=== PATIENT | female | born 1970 | race Caucasian/White ===

== ENCOUNTER → 2016-09-20 | Outpatient (REF) | payer BC ==
[2016-09-20 12:01] LABS: BASO % 0.6 % (0.0-1.0); EOS # 0.1 K/mm3 (0.0-0.50); EOS % 2.3 % (0.0-3.0); LARGE UNSTAINED CELL # 0.1 K/mm3 (0.0-0.4); LARGE UNSTAINED CELL % 1.7 % (0.0-4.0); LYMPH # 1.1 K/mm3 (1.5-4.5); MEAN CORPUSCULAR HEMOGLOBIN 29.1 pg (27.0-33.0); MEAN CORPUSCULAR HGB CONC 33.5 g/dl (32.0-36.5); MONO # 0.4 K/mm3 (0.0-0.8); NEUTROPHILS # 4.6 K/mm3 (1.8-7.7); NEUTROPHILS % 72.5 % (36.0-66.0); PLATELET COUNT, AUTOMATED 328 k/mm3 (150-450); RED CELL DISTRIBUTION WIDTH 13.6 % (11.5-14.5); WHITE BLOOD COUNT 6.4 K/mm3 (4.0-10.0)
[2016-09-20 12:30] LABS: ALBUMIN 3.6 GM/DL (3.2-5.2); ALBUMIN/GLOBULIN RATIO 1.13 (1.00-1.93); ALKALINE PHOSPHATASE 97 U/L (45-117); ALT/SGPT 20 U/L (12-78); ANION GAP 8 MEQ/L (8-16); AST/SGOT 9 U/L (15-37); BILIRUBIN,TOTAL 0.5 MG/DL (0.2-1.0); BLOOD UREA NITROGEN 8 MG/DL (7-18); CALCIUM LEVEL 8.6 MG/DL (8.5-10.1); CARBON DIOXIDE LEVEL 27 MEQ/L (21-32); CHLORIDE LEVEL 105 MEQ/L (98-107); CHOLESTEROL LEVEL 187 MG/DL (<200); CREATININE FOR GFR 0.62 MG/DL (0.55-1.02); GLOMERULAR FILTRATION RATE > 60.0 (>58); GLUCOSE, FASTING 100 MG/DL (70-105); POTASSIUM SERUM 4.2 MEQ/L (3.5-5.1); SODIUM LEVEL 140 MEQ/L (136-145); TOTAL PROTEIN 6.8 GM/DL (6.4-8.2); TRIGLYCERIDES LEVEL 112 MG/DL (<150)
== END ==
LOC: M SFHCPLAZ 08:15
PROVIDERS: ATTEND Nurse Practitioner Family
DX: Z00.00 Encounter for general adult medical examination without abnormal findings (principal); Z13.220 Encounter for screening for lipoid disorders; E55.9 Vitamin D deficiency, unspecified

== ENCOUNTER → 2017-06-17 | Outpatient (REF) | payer BC | LOC: M SFHCWAGY 08:35 | DX: Z12.4 Encounter for screening for malignant neoplasm of cervix (principal) | CPT/HCPCS: G0123 ==

== ENCOUNTER → 2017-06-17 | Outpatient (CLI) | payer BC | LOC: M WHC 08:15 | DX: Z12.31 Encounter for screening mammogram for malignant neoplasm of breast (principal) | CPT/HCPCS: 77067 ==

== ENCOUNTER → 2017-10-02 | Outpatient (REF) | payer BC ==
[2017-10-02 12:55] LABS: TOTAL 25(OH) VITAMIN D 28.5 NG/ML (30.0-100.0)
[2017-10-02 13:07] LABS: ALBUMIN 3.8 GM/DL (3.2-5.2); ALBUMIN/GLOBULIN RATIO 1.03 (1.00-1.93); ALKALINE PHOSPHATASE 98 U/L (45-117); ALT/SGPT 25 U/L (12-78); ANION GAP 8 MEQ/L (8-16); AST/SGOT 13 U/L (7-37); BILIRUBIN,TOTAL 0.3 MG/DL (0.2-1.0); BLOOD UREA NITROGEN 12 MG/DL (7-18); CALCIUM LEVEL 8.8 MG/DL (8.5-10.1); CARBON DIOXIDE LEVEL 28 MEQ/L (21-32); CHLORIDE LEVEL 105 MEQ/L (98-107); CHOLESTEROL LEVEL 189 MG/DL (<200); CHOLESTEROL RISK RATIO 3.634 (<5); GLOMERULAR FILTRATION RATE > 60.0 (>58); GLUCOSE, FASTING 114 MG/DL (70-100); HDL CHOLESTEROL 52 MG/DL (>40); LDL CHOLESTEROL 118.6 MG/DL (<100); NON-HDL-C 137 MG/DL; POTASSIUM SERUM 4.3 MEQ/L (3.5-5.1); SODIUM LEVEL 141 MEQ/L (136-145); TOTAL PROTEIN 7.5 GM/DL (6.4-8.2); TRIGLYCERIDES LEVEL 92 MG/DL (<150)
[2017-10-02 13:13] LABS: FREE T4 0.99 NG/DL (0.76-1.46)
== END ==
LOC: M SFHCPLAZ 08:59
DX: Z00.00 Encounter for general adult medical examination without abnormal findings (principal); Z13.220 Encounter for screening for lipoid disorders; E55.9 Vitamin D deficiency, unspecified
CPT/HCPCS: 84443

== ENCOUNTER → 2017-10-14 | Outpatient (CLI) | payer BC | LOC: M EKG 16:45 | DX: R03.0 Elevated blood-pressure reading, without diagnosis of hypertension (principal) | CPT/HCPCS: 93788 ==

== ENCOUNTER → 2017-12-03 | Outpatient (REF) | payer BC ==
[2017-12-03 12:00] LABS: ANION GAP 7 MEQ/L (8-16); BLOOD UREA NITROGEN 13 MG/DL (7-18); CALCIUM LEVEL 8.7 MG/DL (8.5-10.1); CARBON DIOXIDE LEVEL 30 MEQ/L (21-32); CHLORIDE LEVEL 102 MEQ/L (98-107); CREATININE FOR GFR 0.65 MG/DL (0.55-1.30); GLOMERULAR FILTRATION RATE > 60.0 (>58); GLUCOSE, FASTING 112 MG/DL (70-100); POTASSIUM SERUM 4.1 MEQ/L (3.5-5.1); SODIUM LEVEL 139 MEQ/L (136-145)
== END ==
LOC: M SFHCPLAZ 07:58
DX: I10 Essential (primary) hypertension (principal)

== ENCOUNTER → 2018-06-02 | Outpatient (REF) | payer BC ==
[2018-06-02 12:31] LABS: BLOOD UREA NITROGEN 9 MG/DL (7-18); CALCIUM LEVEL 9.1 MG/DL (8.5-10.1); CARBON DIOXIDE LEVEL 29 MEQ/L (21-32); CHLORIDE LEVEL 103 MEQ/L (98-107); GLOMERULAR FILTRATION RATE > 60.0 (>58); GLUCOSE, FASTING 111 MG/DL (70-100); SODIUM LEVEL 138 MEQ/L (136-145)
[2018-06-02 12:37] LABS: TOTAL 25(OH) VITAMIN D 32.2 NG/ML (30.0-100.0)
[2018-06-02 12:59] LABS: CREATININE, URINE 25.7 MG/DL; MALB URINE SIEMENS 11.9 MG/L; MAU/CREAT RATIO 46.3 MCG/MG (0.0-30.0)
== END ==
LOC: M SFHCPLAZ 09:58
PROVIDERS: ATTEND Nurse Practitioner Family
DX: I10 Essential (primary) hypertension (principal); E55.9 Vitamin D deficiency, unspecified

== ENCOUNTER → 2018-08-11 | Outpatient (CLI) | payer BC ==
--- NOTE | 2018-08-11 09:32 | REPMRS ---
Patient History The patient states she had a clinical breast exam in 08/2018. No known family history of cancer. 3D TOMOSYNTHESIS WAS PERFORMED. [facility] for [facility] cancer is 12.2%. Digital Woman Screen Mammo: August 11, 2018 - Exam #: [id number] Bilateral CC and MLO view(s) were taken. Technologist: Erika Coley, Technologist Prior study comparison: June 17, 2017, digital woman screen mammo performed at [facility]. April 15, 2014, bilateral digital mammo screening bilat, performed at [facility]. FINDINGS: There are scattered fibroglandular densities. There has been no change in the appearance of the mammogram from the prior studies. There is a mild amount of residual fibroglandular tissue which is fairly symmetric. There is no interval development of dominant mass, architectural distortion, or clustered microcalcification suggestive of malignancy. Assessment: BI-RADS/ACR category 1 mammogram. Negative Mammogram. Recommendation Routine screening mammogram in 1 year (for women over age 40). This mammogram was interpreted with the aid of an FDA-approved computer-aided dectection system. Electronically Signed By: Micheal Tuttle MD 08/11/18 0931
== END ==
LOC: M WHC 07:53
PROVIDERS: ATTEND Nurse Practitioner Family
DX: Z12.31 Encounter for screening mammogram for malignant neoplasm of breast (principal)

== ENCOUNTER → 2018-10-13 | Outpatient (CLI) | payer BC ==
[~2018-10-13] MED LIST: D32000CA PO; FERR325T81 PO; FERR325T82 PO; HYDR12.55 PO; LISI-542 PO
--- NOTE | 2018-10-13 10:23 | REP ---
Clinical: Abnormal uterine bleeding. Technique: Transabdominal pelvic ultrasound followed by transvaginal examination for better evaluation of the endometrium and adnexa. Findings: Heterogeneous anteverted uterus measures 11.3 x 6.5 x 8.8 cm. Endometrial complex measures 9.5 mm thickness. No discrete uterine or endometrial abnormalities appreciated. Right ovary measures 3.0 x 1.5 x 1.8 cm and appears normal with normal venous flow noted. Left ovary measures 6.8 x 3.5 x 4.4 cm and includes 3.5 x 3.2 x 3.3 cm suspected complex cyst. Left ovary demonstrates normal venous flow. No pelvic free fluid. Impression: 1. Heterogeneous anteverted uterus without discrete abnormality identified. 2. 3.5 cm complex likely physiologic cyst in the left ovary. Consider reevaluation in 4-6 weeks to evaluate for resolution. Electronically Signed by Roddy Benito MD 10/13/2018 10:14 A
== END ==
LOC: M RAD 08:59
PROVIDERS: ATTEND Obstetrics & Gynecology
DX: N92.4 Excessive bleeding in the premenopausal period (principal)

== ENCOUNTER 2018-10-20 05:53 | Day surgery (SDC) | payer BC ==
[~2018-10-20] VITALS: Ht 157.5 cm; Wt 93.4 kg
[2018-10-20] MEDS ORDERED: LR 1,000 ML IV ONE (06:00)
[2018-10-20 06:33] LABS: HEMATOCRIT 37.4 % (36.0-47.0); HEMOGLOBIN 12.4 g/dl (12.0-15.5); MEAN CORPUSCULAR HEMOGLOBIN 28.1 pg (27.0-33.0); MEAN CORPUSCULAR HGB CONC 33.2 g/dl (32.0-36.5); MEAN CORPUSCULAR VOLUME 84.6 fl (80.0-96.0); PLATELET COUNT, AUTOMATED 298 10^3/uL (150-450); RED BLOOD COUNT 4.42 10^6/uL (4.00-5.40); WHITE BLOOD COUNT 6.3 10^3/uL (4.0-10.0)
[2018-10-20 06:40] LABS: URINE PREG TEST NEGATIVE (NEGATIVE)
[2018-10-20] MEDS ORDERED: DESFLURANE 240 ML INHALANT As Ordered ONE (06:52)
[2018-10-20] MEDS ORDERED: PROPOFOL 200 MG/20 ML VIAL As Ordered ONE (07:01)
[2018-10-20] MEDS ORDERED: LIDOCAINE 2% INJ 100 MG/5 ML SDV (FOR ANES.) As Ordered ONE (07:01)
[2018-10-20] MEDS ORDERED: ONDANSETRON 4MG/2ML VIAL (J2405) As Ordered ONE (07:01)
[2018-10-20] MEDS ORDERED: fentaNYL 100 MCG/2 ML INJECTION (J3010) As Ordered ONE (07:01)
[2018-10-20] MEDS ORDERED: KETOROLAC 60 MG/2 ML VIAL (J1885) As Ordered ONE (07:01)
[2018-10-20] MEDS ORDERED: dexameTHASONE 4 MG/ML 1ML VIAL (J1100) As Ordered ONE (07:01)
[2018-10-20] MEDS ORDERED: MIDAZOLAM INJ 2 MG/2 ML VIAL (J2250) As Ordered ONE (07:02)
[2018-10-20] MEDS ORDERED: METOCLOPRAMIDE INJ 10MG/2ML VIAL (J2765) IV PRN (09:00)
[2018-10-20] MEDS ORDERED: ONDANSETRON 4MG/2ML VIAL (J2405) IV PRN (09:00)
[2018-10-20] MEDS ORDERED: MEPERIDINE INJ 25 MG/ML VIAL (J2175) IV PRN (09:00)
[2018-10-20] MEDS ORDERED: LR 1,000 ML IV SCH (09:00)
[2018-10-20] MEDS ORDERED: oxyCODONE 5MG TAB PO PRN (09:00)
[2018-10-20] MEDS ORDERED: fentaNYL 100 MCG/2 ML INJECTION (J3010) IV PRN (09:00)
--- NOTE | 2018-10-20 09:06 | RO ---
DATE OF OPERATION: 10/20/2018 PREOPERATIVE DIAGNOSIS: Abnormal uterine bleeding. POSTOPERATIVE DIAGNOSES: 1. Abnormal uterine bleeding. 2. Endometrial polyp. PROCEDURE PERFORMED: Hysteroscopy, dilation and curettage with NovaSure ablation. SURGEON: Emma Remy MD BUSINESS ANALYSIS PROFESSIONAL: None. ANESTHESIA: General via laryngeal mask airway. ESTIMATED BLOOD LOSS: 10 mL. INTRAVENOUS FLUIDS: 600 mL of lactated Ringer solution. URINE OUTPUT: Was not obtained. OPERATIVE FINDINGS: Two endometrial polyps, one anterior wall at the endometrium approximately 8-10 mm, posterior polyp approximately 1-2 mL. Bilateral ostia visualized. Cavity length was 6 x 2.6. Ablation time was 1 minute and 32 seconds. DESCRIPTION OF OPERATION: After informed consent obtained and written consent was reviewed, the patient was brought to the operating room where she was placed under general anesthesia. She was then placed in lithotomy position, was prepped and draped in a normal sterile fashion. A time-out in operating room was then performed identifying the patient, procedure to be performed, as well as drug allergies. A bivalve speculum was placed revealing the cervix and the cervix was grasped with a single-tooth tenaculum. Cavity length was then obtained. The cervix then sequentially dilated using Panchito dilators. Hysteroscope was then advanced through the cervical os and the endometrial cavity was assessed showing above-noted findings of two endometrial polyps. Bilateral ostia visualized. NovaSure device was then placed. The cavity width was then obtained. This was entered along with cavity length with the NovaSure device. Cavity assessment was initially deployed with cavity assessment not being completed. It was determined that the seal around the device was poor. Two tenaculums were then placed alongthe sides of cervix for a better seal. Cavity assessment was then redeployed. Cavity assessment was complete and ablation was performed for approximately 1 minute and 32 seconds. The NovaSure device was then removed. The mesh was inspected and noted be intact. The hysteroscope was then reinserted through the patient's cervix and the endometrium was re-assessed showing desiccation of endometrial cavity. The hysteroscope was then removed as well as the single-tooth tenaculums and the speculum. The patient was then taken out of lithotomy position, was awakened from general anesthesia and taken to recovery in stable condition. Counts were correct. edited: 10/21/2018 1307 tkf ANDRE
[2018-10-20] MEDS ORDERED: PERCOCET 5MG/325MG TAB PO PRN (09:15)
[2018-10-20] MEDS ORDERED: KETOROLAC 30 MG/ML VIAL (J1885) IV SCH (09:15)
[2018-10-20 09:26] VITALS: BP 143/84
== END 2018-10-20 10:15 | disposition home or self-care (01) ==
LOC: M SDC 05:53
PROVIDERS: ATTEND Obstetrics & Gynecology
DX: N92.6 Irregular menstruation, unspecified (principal); N84.0 Polyp of corpus uteri; I10 Essential (primary) hypertension; Z79.899 Other long term (current) drug therapy
CPT/HCPCS: 36415; 58563; 84703; 85027; 86850; 86900; 86901; 88305; J1100; J1885; J2250; J2405; J3010

== ENCOUNTER → 2019-04-26 | Outpatient (REF) | payer BC ==
[2019-04-26 11:35] LABS: HEMATOCRIT 40.5 % (36.0-47.0); HEMOGLOBIN 13.8 g/dl (12.0-15.5); MEAN CORPUSCULAR HEMOGLOBIN 29.8 pg (27.0-33.0); MEAN CORPUSCULAR HGB CONC 34.1 g/dl (32.0-36.5); MEAN CORPUSCULAR VOLUME 87.5 fl (80.0-96.0); PLATELET COUNT, AUTOMATED 331 10^3/uL (150-450); RED BLOOD COUNT 4.63 10^6/uL (4.00-5.40); WHITE BLOOD COUNT 6.9 10^3/uL (4.0-10.0)
[2019-04-26 12:08] LABS: ALBUMIN 3.2 GM/DL (3.2-5.2); ALT/SGPT 27 U/L (12-78); BILIRUBIN,TOTAL 0.4 MG/DL (0.2-1.0); BLOOD UREA NITROGEN 14 MG/DL (7-18); CALCIUM LEVEL 8.9 MG/DL (8.5-10.1); CARBON DIOXIDE LEVEL 29 MEQ/L (21-32); CHLORIDE LEVEL 102 MEQ/L (98-107); CHOLESTEROL LEVEL 222 MG/DL (<200); CHOLESTEROL RISK RATIO 5.045 (<5); CREATININE FOR GFR 0.64 MG/DL (0.55-1.30); FERRITIN 116 NG/ML (8-252); GLOMERULAR FILTRATION RATE > 60.0 (>58); GLUCOSE, FASTING 101 MG/DL (70-100); HDL CHOLESTEROL 44 MG/DL (>40); IRON (FE) 95 UG/DL (50-170); LDL CHOLESTEROL 141 MG/DL (<100); NON-HDL-C 178 MG/DL; PERCENT SATURATION 30.8 % (13.2-45.0); POTASSIUM SERUM 3.9 MEQ/L (3.5-5.1); SODIUM LEVEL 136 MEQ/L (136-145); TOTAL IRON BINDING CAPACITY 308 UG/DL (250-450); TOTAL PROTEIN 6.7 GM/DL (6.4-8.2); TRIGLYCERIDES LEVEL 184 MG/DL (<150)
[2019-04-26 12:14] LABS: TOTAL 25(OH) VITAMIN D 37.2 NG/ML (30.0-100.0)
[2019-04-26 12:24] LABS: HEMOGLOBIN A1c 6.9 %
== END ==
LOC: M SFHCPLAZ 09:03
PROVIDERS: ATTEND Family Medicine
DX: Z13.1 Encounter for screening for diabetes mellitus (principal); Z13.220 Encounter for screening for lipoid disorders; N92.0 Excessive and frequent menstruation with regular cycle; I10 Essential (primary) hypertension; E55.9 Vitamin D deficiency, unspecified

== ENCOUNTER 2019-07-18 23:37 | Emergency (ER) | payer BC ==
[~2019-07-18] VITALS: Ht 157.5 cm; Wt 88.6 kg
[2019-07-18] MEDS ORDERED: METF500T13 (23:54)
[2019-07-18] MEDS ORDERED: ATOR40TA75 (23:54)
[2019-07-19 00:21] LABS: HEMOGLOBIN 11.8 g/dl (12.0-15.5); MEAN CORPUSCULAR HEMOGLOBIN 29.4 pg (27.0-33.0); MEAN CORPUSCULAR HGB CONC 33.7 g/dl (32.0-36.5); MEAN CORPUSCULAR VOLUME 87.1 fl (80.0-96.0); PLATELET COUNT, AUTOMATED 197 10^3/uL (150-450); RED BLOOD COUNT 4.02 10^6/uL (4.00-5.40); WHITE BLOOD COUNT 8.7 10^3/uL (4.0-10.0)
[2019-07-19 00:43] LABS: ATYPICAL LYMPH 4 % (0-5); LYMPHOCYTES 35 % (16-44); MONOCYTES 8 % (0-5); NEUTROPHILS 53 % (28-66); PLATELET CLUMPS SMALL AMT; PLATELET ESTIMATE NORMAL (NORMAL)
[2019-07-19 00:48] LABS: ALBUMIN 3.3 GM/DL (3.2-5.2); ALT/SGPT 83 U/L (12-78); BILIRUBIN,DIRECT 0.3 MG/DL (0.0-0.2); BILIRUBIN,TOTAL 1.2 MG/DL (0.2-1.0); BLOOD UREA NITROGEN 12 MG/DL (7-18); CALCIUM LEVEL 8.2 MG/DL (8.5-10.1); CARBON DIOXIDE LEVEL 26 MEQ/L (21-32); CHLORIDE LEVEL 98 MEQ/L (98-107); CREATININE FOR GFR 0.81 MG/DL (0.55-1.30); GLOMERULAR FILTRATION RATE > 60.0 (>58); GLUCOSE, FASTING 138 MG/DL (70-100); LIPASE 172 U/L (73-393); POTASSIUM SERUM 3.7 MEQ/L (3.5-5.1); SODIUM LEVEL 131 MEQ/L (136-145); TOTAL PROTEIN 6.7 GM/DL (6.4-8.2)
[2019-07-19 00:52] LABS: HCG, SERUM QUALITATIVE NEGATIVE (NEGATIVE)
[2019-07-19] MEDS ORDERED: NS 1,000 ML IV ONE (03:00)
[2019-07-19] MEDS ORDERED: ISOVUE-370 76% 100ML VIAL As Ordered ONE (03:05)
--- NOTE | 2019-07-19 03:39 | REPVR ---
PROCEDURE INFORMATION: Exam: CT Abdomen And Pelvis With Contrast Exam date and time: 07/19/2019 3:14 AM Age: 49 years old Clinical indication: Abdominal pain; Additional info: R pain TECHNIQUE: Imaging protocol: Computed tomography of the abdomen and pelvis with intravenous contrast. Radiation optimization: All CT scans at this facility use at least one of these dose optimization techniques: automated exposure control; mA and/or kV adjustment per patient size (includes targeted exams where dose is matched to clinical indication); or iterative reconstruction. Contrast material: ISO 370; Contrast volume: 100 ml; Contrast route: IV; COMPARISON: US PELVIC NON-OB COMPLETE 2018-10-13 09:22 FINDINGS: Mediastinal space: Small gastroesophageal sliding type hiatal hernia. Liver: Indeterminate 3.5 cm hypodense liver lesion which persists on the delayed images with a rim of enhancement. Gallbladder and bile ducts: Normal. No calcified stones. No ductal dilation. Pancreas: Normal. No ductal dilation. Spleen: Splenomegaly with a rim calcified splenic cystic lesion measuring 2.1 cm. 13.5 cm spleen. Adrenals: Normal. No mass. Kidneys and ureters: Normal. No hydronephrosis. Stomach and bowel: Unremarkable. No obstruction. No mucosal thickening. Appendix: Normal appendix. Intraperitoneal space: Unremarkable. No free air. No significant fluid collection. Vasculature: Unremarkable. No abdominal aortic aneurysm. Lymph nodes: Unremarkable. No enlarged lymph nodes. Bladder: Unremarkable as visualized. Reproductive: Enlarged uterus with heterogeneous uterine endometrium, and possible 1.5 cm polyp, recommend follow-up. Incidental 1 cm right ovarian cyst. Anteverted uterus. Bones/joints: Moderate lumbar spondylosis. Sacroiliitis, left greater than right. Soft tissues: Diastasis of the abdominus rectus muscle. Small fat protruding umbilical hernia. IMPRESSION: 1. Indeterminate 3.5 cm hypodense liver lesion which persists on the delayed images with a rim of enhancement. 2. Splenomegaly with a rim calcified splenic cystic lesion measuring 2.1 cm. 3. Enlarged uterus with heterogeneous uterine endometrium, and possible 1.5 cm polyp, recommend follow-up ultrasound. Electronically signed by: Gregorio Brown On 07/19/2019 03:38:59 AM
[2019-07-19] MEDS ORDERED: traMADol 50 MG TAB (BULK 4 TAB ED) PO ONE (05:45)
[2019-07-19 05:46] VITALS: BP 134/86
--- NOTE | 2019-07-20 14:48 | ED PDOC ---
Post-Departure Follow-Up cta abd/p faxed to dr espinal for fu Zaida Lewis MD Jul 20, 2019 14:48
== END 2019-07-19 05:47 | disposition home or self-care (01) ==
LOC: M ED 23:37
DX: K52.9 Noninfective gastroenteritis and colitis, unspecified (principal); K76.89 Other specified diseases of liver; D73.4 Cyst of spleen; E11.9 Type 2 diabetes mellitus without complications; I10 Essential (primary) hypertension; E78.5 Hyperlipidemia, unspecified; Z79.899 Other long term (current) drug therapy; Z79.84 Long term (current) use of oral hypoglycemic drugs; Z91.018 Allergy to other foods
CPT/HCPCS: 74177; 80053; 80076; 81001; 83690; 84703; 85025; 96360; 99284; Q9967

== ENCOUNTER → 2019-07-20 | Outpatient (REF) | payer BC ==
[~2019-07-20] MED LIST changes: +ATOR40TA75; +METF500T13
[2019-07-20 11:58] LABS: HEMATOCRIT 36.7 % (36.0-47.0); HEMOGLOBIN 12.4 g/dl (12.0-15.5); MEAN CORPUSCULAR HEMOGLOBIN 29.5 pg (27.0-33.0); MEAN CORPUSCULAR HGB CONC 33.8 g/dl (32.0-36.5); MEAN CORPUSCULAR VOLUME 87.4 fl (80.0-96.0); PLATELET COUNT, AUTOMATED 220 10^3/uL (150-450); WHITE BLOOD COUNT 7.2 10^3/uL (4.0-10.0)
[2019-07-20 12:24] LABS: HEMOGLOBIN A1c 5.8 %
[2019-07-20 12:27] LABS: ALBUMIN 3.4 GM/DL (3.2-5.2); ALT/SGPT 78 U/L (12-78); BILIRUBIN,TOTAL 1.6 MG/DL (0.2-1.0); BLOOD UREA NITROGEN 7 MG/DL (7-18); CALCIUM LEVEL 8.5 MG/DL (8.5-10.1); CARBON DIOXIDE LEVEL 29 MEQ/L (21-32); CHLORIDE LEVEL 101 MEQ/L (98-107); CREATININE FOR GFR 0.78 MG/DL (0.55-1.30); FERRITIN 534 NG/ML (8-252); GLOMERULAR FILTRATION RATE > 60.0 (>58); GLUCOSE, FASTING 113 MG/DL (70-100); IRON (FE) 37 UG/DL (50-170); POTASSIUM SERUM 3.9 MEQ/L (3.5-5.1); SODIUM LEVEL 136 MEQ/L (136-145); TOTAL IRON BINDING CAPACITY 246 UG/DL (250-450)
[2019-07-20 12:35] LABS: MALB URINE SIEMENS 18.9 MG/L; MAU/CREAT RATIO 10.6 MCG/MG (0.0-30.0)
== END ==
LOC: M SFHCPLAZ 09:16
PROVIDERS: ATTEND Family Medicine
DX: R79.89 Other specified abnormal findings of blood chemistry (principal); D64.9 Anemia, unspecified; E87.1 Hypo-osmolality and hyponatremia; E11.9 Type 2 diabetes mellitus without complications

== ENCOUNTER → 2019-07-26 | Outpatient (CLI) | payer BC ==
--- NOTE | 2019-07-26 09:42 | REP ---
Clinical: Uterine polyp. Technique: Transabdominal pelvic ultrasound followed by transvaginal examination for better evaluation of the endometrium and adnexa with color evaluation. Comparison: 10/13/2018. Findings: Heterogeneous anteverted uterus measures 10.4 x 6.5 x 7.3 cm. Endometrial complex measures 4 mm thickness excluding small amount of endocervical fluid. A 10 x 5 x 9 mm hyperechoic focus within the endometrium is consistent with polyp. Complex area with in the cervix measuring 11 x 12 x 8 mm likely represents small adjacent Nabothian cysts. Left ovary not visualized. Right ovary measures 4.0 x 2.8 x 3.4 cm and includes 2.4 cm physiologic cyst. No pelvic fluid or adnexal mass lesion. Impression: 1. Suspected 10 x 5 x 9 mm endometrial polyp. 2. Complex partially cystic area within the cervix measuring 11 x 12 x 8 mm likely representing complex adjacent Nabothian cysts and essentially unchanged compared to 10/13/2018.
--- NOTE | 2019-07-26 09:48 | REP ---
Clinical: Cyst. Technique: Real time catalan scale and color evaluation using curved array transducer. Findings: The liver is mildly enlarged and measures 20 cm craniocaudal length with a hyperechoic mass in the right lobe measuring 3.0 x 2.5 x 3.0 cm likely representing hemangioma. The pancreas is incompletely evaluated due to interposed bowel gas but visualized portions appear normal. Spleen measures 13.3 x 6.0 x 5.7 cm and includes chronic cyst with calcified rim measuring 2.6 x 2.4 x 2.7 cm. The gallbladder demonstrates 2 cm gallstone without wall thickening or pericholecystic fluid. No biliary ductal dilatation appreciated and the common bile duct measures 3 mm diameter. The bilateral kidneys are normal in appearance without hydronephrosis. Right kidney measures 11.9 x 5.0 x 4.6 cm. Left kidney measures 11.2 x 4.0 x 4.8 cm. Visualized portions of the abdominal aorta appear normal and measures 2.0 cm maximal diameter. No ascites. Impression: 1. Mild hepatomegaly with suspected hemangioma . 2. Rim calcified likely chronic splenic cyst. 3. Cholelithiasis.
== END ==
LOC: M WHC 08:19
PROVIDERS: ATTEND Family Medicine
DX: N84.0 Polyp of corpus uteri (principal); K76.9 Liver disease, unspecified; R16.0 Hepatomegaly, not elsewhere classified; D73.4 Cyst of spleen; K80.20 Calculus of gallbladder without cholecystitis without obstruction

== ENCOUNTER → 2019-07-28 | Outpatient (REF) | payer BC ==
[2019-07-28 12:20] LABS: BILIRUBIN,DIRECT 0.2 MG/DL (0.0-0.2); BLOOD UREA NITROGEN 10 MG/DL (7-18); CALCIUM LEVEL 8.8 MG/DL (8.5-10.1); CARBON DIOXIDE LEVEL 29 MEQ/L (21-32); CHLORIDE LEVEL 105 MEQ/L (98-107); CREATININE FOR GFR 0.73 MG/DL (0.55-1.30); GLOMERULAR FILTRATION RATE > 60.0 (>58); GLUCOSE, FASTING 109 MG/DL (70-100); POTASSIUM SERUM 4.1 MEQ/L (3.5-5.1); SODIUM LEVEL 139 MEQ/L (136-145)
== END ==
LOC: M PLALAB 08:04
PROVIDERS: ATTEND Family Medicine
DX: R79.89 Other specified abnormal findings of blood chemistry (principal)

== ENCOUNTER → 2019-08-03 | Outpatient (REF) | payer BC ==
[2019-08-03 10:42] LABS: ALBUMIN 3.3 GM/DL (3.2-5.2); BILIRUBIN,DIRECT 0.3 MG/DL (0.0-0.2); BILIRUBIN,TOTAL 0.9 MG/DL (0.2-1.0); TOTAL PROTEIN 6.6 GM/DL (6.4-8.2)
== END ==
LOC: M PLALAB 08:08
PROVIDERS: ATTEND Family Medicine
DX: R79.89 Other specified abnormal findings of blood chemistry (principal)

== ENCOUNTER → 2019-08-17 | Outpatient (CLI) | payer BC ==
--- NOTE | 2019-08-17 10:31 | REPMRS ---
Patient History The patient states she had a clinical breast exam in August 2019. No known family history of cancer. Patient states she had a uterine ablation 10/2018. 3D TOMOSYNTHESIS WAS PERFORMED. [facility] lifetime risk for breast cancer is 12.1%. SHEILA Ruiz. Digital Woman Screen Mammo: August 17, 2019 - Exam #: [id number] Bilateral CC and MLO view(s) were taken. Technologist: Tiera León, Technologist Prior study comparison: August 11, 2018, bilateral digital woman screen mammo performed at [facility]. June 17, 2017, digital woman screen mammo performed at [facility]. FINDINGS: The breast tissue is heterogeneously dense. This may lower the sensitivity of mammography. There has been no change in the appearance of the mammogram from the prior studies. There is a moderate amount of residual fibroglandular tissue which is fairly symmetric. There is no interval development of dominant mass, areas of architectural distortion, or clustered microcalcification typical of malignancy. Assessment: BI-RADS/ACR category 1 mammogram. Negative Mammogram. Recommendation Routine screening mammogram in 1 year (for women over age 40). This mammogram was interpreted with the aid of an FDA-approved computer-aided dectection system. Electronically Signed By: Micheal Tuttle MD 08/17/19 [id number]
== END ==
LOC: M WHC 08:04
PROVIDERS: ATTEND Nurse Practitioner Family
DX: Z12.31 Encounter for screening mammogram for malignant neoplasm of breast (principal); R79.89 Other specified abnormal findings of blood chemistry

== ENCOUNTER → 2019-08-17 | Outpatient (REF) | payer BC | LOC: M SFHCWAGY 15:04 | PROVIDERS: ATTEND Nurse Practitioner Family | DX: Z12.4 Encounter for screening for malignant neoplasm of cervix (principal) | CPT/HCPCS: 87624; G0123 ==

== ENCOUNTER → 2020-02-10 | Outpatient (REF) | payer BC ==
[2020-02-10 10:50] LABS: HEMATOCRIT 38.9 % (36.0-47.0); HEMOGLOBIN 12.7 g/dl (12.0-15.5); MEAN CORPUSCULAR HEMOGLOBIN 29.5 pg (27.0-33.0); MEAN CORPUSCULAR HGB CONC 32.6 g/dl (32.0-36.5); MEAN CORPUSCULAR VOLUME 90.5 fl (80.0-96.0); PLATELET COUNT, AUTOMATED 251 10^3/uL (150-450)
[2020-02-10 11:00] LABS: HEMOGLOBIN A1c 5.4 %
[2020-02-10 11:12] LABS: ALBUMIN 3.8 GM/DL (3.2-5.2); ALT/SGPT 28 U/L (12-78); BILIRUBIN,TOTAL 0.7 MG/DL (0.2-1.0); BLOOD UREA NITROGEN 10 MG/DL (7-18); CALCIUM LEVEL 8.6 MG/DL (8.5-10.1); CARBON DIOXIDE LEVEL 31 MEQ/L (21-32); CHLORIDE LEVEL 104 MEQ/L (98-107); CREATININE FOR GFR 0.74 MG/DL (0.55-1.30); FERRITIN 123 NG/ML (8-252); GLOMERULAR FILTRATION RATE > 60.0 (>58); GLUCOSE, FASTING 109 MG/DL (70-100); IRON (FE) 100 UG/DL (50-170); POTASSIUM SERUM 3.6 MEQ/L (3.5-5.1); SODIUM LEVEL 139 MEQ/L (136-145); TOTAL IRON BINDING CAPACITY 278 UG/DL (250-450); TOTAL PROTEIN 6.6 GM/DL (6.4-8.2)
== END ==
LOC: M SFHCPLAZ 08:02
PROVIDERS: ATTEND Family Medicine
DX: E61.1 Iron deficiency (principal); I10 Essential (primary) hypertension; K76.9 Liver disease, unspecified; E11.9 Type 2 diabetes mellitus without complications

== ENCOUNTER → 2020-02-17 | Outpatient (CLI) | payer BC ==
--- NOTE | 2020-02-17 08:57 | REP ---
INDICATION: K76.9 F/U LIVER HEMANGIOMA COMPARISON: 07/26/2019 TECHNIQUE: Real time catalan scale ultrasound examination using curved array transducer. FINDINGS: Liver is mildly enlarged and measures 19 cm in craniocaudal length. 3.2 x 3.6 x 3.6 cm hyperechoic lesion in the right lobe is consistent with hemangioma. Visualized portions of the pancreas are normal but limited due to interposed bowel gas. Gallbladder demonstrates gallstones up to 21 mm without wall thickening or pericholecystic fluid. No biliary ductal dilatation is appreciated and the common bile duct measures 3 mm diameter. Right kidney is normal in reniform shape in appearance without hydronephrosis and measures 12.2 x 5.1 x 4.5 cm. No ascites. Visualized portions of the abdominal aorta are normal and measure 1.8 cm maximal diameter although evaluation is limited due to interposed bowel gas. IMPRESSION: 1. 3.6 cm hepatic hyperechoic lesion consistent with hemangioma. 2. Cholelithiasis. <Electronically signed by Roddy Benito > 02/17/20 0853
--- NOTE | 2020-02-17 09:03 | REP ---
INDICATION: N83.201 F/U RT OVARIAN CYST COMPARISON: 07/26/2019 TECHNIQUE: Transabdominal pelvic ultrasound. FINDINGS: Bladder is collapsed. Heterogeneous anteverted uterus measures 11.1 x 7.1 x 8.3 cm. The endometrial complex measures 16 mm thickness. No discrete uterine or endometrial abnormalities are appreciated. Right ovary measures 4.5 x 2.6 x 2.7 cm and includes 2.4 x 3.0 x 2.0 cm complex cyst likely physiologic. Left ovary measures 3.0 x 1.5 x 2.5 cm and includes 1.8 x 1.5 x 1.1 cm presumed physiologic cyst. No pelvic fluid or adnexal mass lesion. IMPRESSION: 1. Examination is limited due to transabdominal technique and collapsed bladder and lack of transvaginal images. The previously noted uterine and endometrial findings cannot be confirmed by current examination. 2. Complex hypoechoic lesion in the right ovary appears relatively similar to prior examination and is nonspecific likely representing complex cyst. Left ovarian cyst appears simple and likely physiologic cyst/dominant follicle. <Electronically signed by Roddy Benito > 02/17/20 0887
== END ==
LOC: M WHC 07:54
PROVIDERS: ATTEND Family Medicine
DX: N83.201 Unspecified ovarian cyst, right side (principal); K76.9 Liver disease, unspecified; K80.20 Calculus of gallbladder without cholecystitis without obstruction

== ENCOUNTER → 2020-07-06 | Outpatient (CLI) | payer BC ==
[~2020-07-06] MED LIST changes: -LISI-542 PO; +LISI-898 PO
--- NOTE | 2020-07-06 08:47 | REP ---
INDICATION: EPIGASTRIC PAIN COMPARISON: 02/17/2020 TECHNIQUE: Real time catalan scale ultrasound examination using curved array transducer. FINDINGS: Liver again demonstrates multiple hyperechoic lesions similar to prior examination and likely representing hemangiomas. Largest lesion measures 4.1 cm maximal diameter within the right lobe. Pancreas is incompletely evaluated due to interposed bowel gas but visualized portions appear normal. Gallbladder demonstrates 16 mm gallstone at the neck of the gallbladder without wall thickening or pericholecystic fluid. No biliary ductal dilatation is appreciated and the common bile duct measures 3.8 mm diameter. Right kidney is normal in reniform shape without hydronephrosis and measures 10.7 x 5.5 x 5.0 cm. No ascites. IMPRESSION: 1. Stable hepatic hyperdense lesions suggesting hemangiomas up to 4.1 cm. 2. Cholelithiasis. <Electronically signed by Roddy Benito > 07/06/20 0822
== END ==
LOC: M RAD 07:58
PROVIDERS: ATTEND Physician Assistant
DX: K80.20 Calculus of gallbladder without cholecystitis without obstruction (principal); R10.13 Epigastric pain; Z87.19 Personal history of other diseases of the digestive system

== ENCOUNTER → 2020-08-08 | Outpatient (CLI) | payer BC ==
[2020-08-08 11:02] LABS: HEMOGLOBIN A1c 5.6 %
[2020-08-08 11:11] LABS: BLOOD UREA NITROGEN 11 MG/DL (7-18); CALCIUM LEVEL 9.1 MG/DL (8.5-10.1); CARBON DIOXIDE LEVEL 29 MEQ/L (21-32); CHLORIDE LEVEL 103 MEQ/L (98-107); CHOLESTEROL LEVEL 137 MG/DL (<200); CHOLESTEROL RISK RATIO 2.537 (<5); GLOMERULAR FILTRATION RATE > 60.0 (>58); GLUCOSE, FASTING 103 MG/DL (70-100); HDL CHOLESTEROL 54 MG/DL (>40); LDL CHOLESTEROL 69 MG/DL (<100); NON-HDL-C 83 MG/DL; POTASSIUM SERUM 3.8 MEQ/L (3.5-5.1); SODIUM LEVEL 137 MEQ/L (136-145); TRIGLYCERIDES LEVEL 68 MG/DL (<150)
[2020-08-08 11:23] LABS: CREATININE, URINE 40.2 MG/DL; MALB URINE SIEMENS < 5.0 MG/L; MAU/CREAT RATIO 12.4 MCG/MG (0.0-30.0)
== END ==
LOC: M PLALAB 07:49 → M LAB 07:49
PROVIDERS: ATTEND Family Medicine
DX: E11.9 Type 2 diabetes mellitus without complications (principal); I10 Essential (primary) hypertension; E78.2 Mixed hyperlipidemia

== ENCOUNTER → 2021-01-15 | Outpatient (REF) ==
[2021-01-15 15:59] LABS: RSV AMPLIFICATION NEGATIVE (NEGATIVE)
== END ==
LOC: M LABSMTC 10:10
PROVIDERS: ATTEND Family Medicine
DX: Z20.822 Contact with and (suspected) exposure to COVID-19 (principal)

== ENCOUNTER → 2021-03-20 | Outpatient (CLI) | payer BC ==
[~2021-03-20] MED LIST changes: -LISI-898 PO; +LISI5TAB11 PO
[2021-03-20 11:44] LABS: BASO % 0.6 % (0.0-1.0); EOS # 0.1 10^3/uL (0.0-0.5); EOS % 1.5 % (0.0-3.0); HEMATOCRIT 37.9 % (36.0-47.0); HEMOGLOBIN 12.8 g/dl (12.0-15.5); LYMPH # 1.5 10^3/uL (1.5-5.0); LYMPH % 28.6 % (24.0-44.0); MEAN CORPUSCULAR HEMOGLOBIN 29.9 pg (27.0-33.0); MEAN CORPUSCULAR HGB CONC 33.8 g/dl (32.0-36.5); MEAN CORPUSCULAR VOLUME 88.6 fl (80.0-96.0); MONO # 0.5 10^3/uL (0.0-0.8); MONO % 9.3 % (2.0-8.0); NEUTROPHILS # 3.2 10^3/uL (1.5-8.5); NEUTROPHILS % 59.6 % (36.0-66.0); PLATELET COUNT, AUTOMATED 250 10^3/uL (150-450); RED BLOOD COUNT 4.28 10^6/uL (4.00-5.40); WHITE BLOOD COUNT 5.4 10^3/uL (4.0-10.0)
[2021-03-20 12:10] LABS: ALBUMIN 3.7 GM/DL (3.2-5.2); ALT/SGPT 32 U/L (12-78); BILIRUBIN,TOTAL 0.7 MG/DL (0.2-1.0); BLOOD UREA NITROGEN 11 MG/DL (7-18); CALCIUM LEVEL 9.3 MG/DL (8.5-10.1); CARBON DIOXIDE LEVEL 30 MEQ/L (21-32); CHLORIDE LEVEL 104 MEQ/L (98-107); CREATININE FOR GFR 0.62 MG/DL (0.55-1.30); GLOMERULAR FILTRATION RATE > 60.0 (>58); GLUCOSE, FASTING 102 MG/DL (70-100); LIPASE 155 U/L (73-393); SODIUM LEVEL 140 MEQ/L (136-145); TOTAL PROTEIN 6.8 GM/DL (6.4-8.2)
[2021-03-20 12:18] LABS: TOTAL 25(OH) VITAMIN D 34.9 NG/ML (30.0-100.0)
[2021-03-20 13:13] LABS: HEMOGLOBIN A1c 5.8 %
== END ==
LOC: M PLALAB 08:09
PROVIDERS: ATTEND Family Medicine
DX: E11.9 Type 2 diabetes mellitus without complications (principal)

== ENCOUNTER → 2021-09-17 | Outpatient (CLI) | payer BC ==
[2021-09-17 22:07] LABS: ALBUMIN 3.6 GM/DL (3.2-5.2); ALT/SGPT 31 U/L (12-78); BILIRUBIN,TOTAL 0.6 MG/DL (0.2-1.0); BLOOD UREA NITROGEN 9 MG/DL (7-18); CARBON DIOXIDE LEVEL 27 MEQ/L (21-32); CHLORIDE LEVEL 104 MEQ/L (98-107); CHOLESTEROL LEVEL 126 MG/DL (<200); CHOLESTEROL RISK RATIO 2.423 (<5); CREATININE FOR GFR 0.63 MG/DL (0.55-1.30); GLOMERULAR FILTRATION RATE > 60.0 (>58); GLUCOSE, FASTING 102 MG/DL (70-100); HDL CHOLESTEROL 52 MG/DL (>40); LDL CHOLESTEROL 63 MG/DL (<100); NON-HDL-C 74 MG/DL; SODIUM LEVEL 139 MEQ/L (136-145); TOTAL 25(OH) VITAMIN D 43.6 NG/ML (30.0-100.0); TOTAL PROTEIN 6.7 GM/DL (6.4-8.2); TRIGLYCERIDES LEVEL 57 MG/DL (<150)
[2021-09-17 23:48] LABS: CREATININE, URINE 23.8 MG/DL; MALB URINE SIEMENS < 5.0 MG/L
== END ==
LOC: M PLALAB 09:50
PROVIDERS: ATTEND Nurse Practitioner Adult Health
DX: E11.9 Type 2 diabetes mellitus without complications (principal); E55.9 Vitamin D deficiency, unspecified; Z13.29 Encounter for screening for other suspected endocrine disorder; Z13.220 Encounter for screening for lipoid disorders

== ENCOUNTER → 2021-10-24 | Outpatient (CLI) | payer BC | LOC: M WHC 10:58 | PROVIDERS: ATTEND Advanced Practice Midwife | DX: Z12.31 Encounter for screening mammogram for malignant neoplasm of breast (principal) ==

== ENCOUNTER → 2022-03-21 | Outpatient (CLI) | payer BC ==
[2022-03-21 11:14] LABS: ALBUMIN 3.5 G/DL (3.2-5.2); ALKALINE PHOSPHATASE 99 U/L (46-116); ALT/SGPT 26 U/L (7.0-40); AST/SGOT 23 U/L (<34); BILIRUBIN,TOTAL 0.8 MG/DL (0.3-1.2); BLOOD UREA NITROGEN 15 MG/DL (9-23); CALCIUM LEVEL 9.3 MG/DL (8.5-10.1); CARBON DIOXIDE LEVEL 30 MMOL/L (20-31); CHLORIDE LEVEL 102 MMOL/L (98-107); CHOLESTEROL LEVEL 130 MG/DL (<200); CHOLESTEROL RISK RATIO 2.81 (<5); CREATININE FOR GFR 0.62 MG/DL (0.55-1.30); GLOMERULAR FILTRATION RATE > 60.0 (>58); GLUCOSE, FASTING 100 MG/DL (60-100); HDL CHOLESTEROL 46.1 MG/DL (>40); LDL CHOLESTEROL 67.5 MG/DL (<100); NON-HDL-C 84 MG/DL; POTASSIUM SERUM 4.2 MMOL/L (3.5-5.1); SODIUM LEVEL 137 MMOL/L (136-145); THYROID STIMULATING HORMONE 2.322 uIU/ML (0.55-4.78); TOTAL 25(OH) VITAMIN D 31.7 NG/ML (20.0-100.0); TOTAL PROTEIN 6.5 G/DL (5.7-8.2); TRIGLYCERIDES LEVEL 82 MG/DL (<150)
[2022-03-21 11:36] LABS: CREATININE, URINE 73.6 MG/DL; MALB URINE SIEMENS < 3.0 MG/DL
== END ==
LOC: M PLALAB 07:55
PROVIDERS: ATTEND Nurse Practitioner Adult Health
DX: E55.9 Vitamin D deficiency, unspecified (principal); E11.9 Type 2 diabetes mellitus without complications; Z13.29 Encounter for screening for other suspected endocrine disorder; Z13.220 Encounter for screening for lipoid disorders

== ENCOUNTER → 2022-09-12 | Outpatient (CLI) | payer BC ==
[2022-09-12 11:35] LABS: HEMOGLOBIN A1c 5.9 % (4.0-6.0)
[2022-09-12 11:49] LABS: ALKALINE PHOSPHATASE 116 U/L (46-116); ALT/SGPT 23 U/L (7.0-40); AST/SGOT 13 U/L (<34); BILIRUBIN,TOTAL 0.7 MG/DL (0.3-1.2); BLOOD UREA NITROGEN 18 MG/DL (9-23); CALCIUM LEVEL 9.6 MG/DL (8.5-10.1); CARBON DIOXIDE LEVEL 30 MMOL/L (20-31); CHLORIDE LEVEL 103 MMOL/L (98-107); CHOLESTEROL LEVEL 134 MG/DL (<200); CHOLESTEROL RISK RATIO 2.64 (<5); CREATININE FOR GFR 0.67 MG/DL (0.55-1.30); GLOMERULAR FILTRATION RATE > 60.0 (>51); GLUCOSE, FASTING 93 MG/DL (60-100); HDL CHOLESTEROL 50.6 MG/DL (>40); LDL CHOLESTEROL 63.8 MG/DL (<100); NON-HDL-C 83.4 MG/DL; POTASSIUM SERUM 4.2 MMOL/L (3.5-5.1); SODIUM LEVEL 139 MMOL/L (136-145); TOTAL PROTEIN 6.8 G/DL (5.7-8.2); TRIGLYCERIDES LEVEL 98 MG/DL (<150)
[2022-09-12 11:51] LABS: THYROID STIMULATING HORMONE 1.323 uIU/ML (0.55-4.78)
== END ==
LOC: M PLALAB 08:42
PROVIDERS: ATTEND Nurse Practitioner Adult Health
DX: E11.9 Type 2 diabetes mellitus without complications (principal); Z13.220 Encounter for screening for lipoid disorders; Z13.29 Encounter for screening for other suspected endocrine disorder

== ENCOUNTER → 2023-03-13 | Outpatient (REF) | payer BC | LOC: M PLALAB 09:35 | PROVIDERS: ATTEND Advanced Practice Midwife | DX: Z01.419 Encounter for gynecological examination (general) (routine) without abnormal findings (principal) | CPT/HCPCS: 87624; G0123 ==

== ENCOUNTER → 2023-03-13 | Outpatient (CLI) | payer BC | LOC: M WHC 08:17 | PROVIDERS: ATTEND Advanced Practice Midwife | DX: Z12.31 Encounter for screening mammogram for malignant neoplasm of breast (principal) ==

== ENCOUNTER → 2023-03-25 | Outpatient (CLI) | payer BC ==
[2023-03-25 12:12] LABS: HEMATOCRIT 39.2 % (36.0-47.0); HEMOGLOBIN 13.2 g/dl (12.0-15.5); MEAN CORPUSCULAR HEMOGLOBIN 29.8 pg (27.0-33.0); MEAN CORPUSCULAR HGB CONC 33.7 g/dl (32.0-36.5); MEAN CORPUSCULAR VOLUME 88.5 fl (80.0-96.0); PLATELET COUNT, AUTOMATED 267 10^3/uL (150-450); RED BLOOD COUNT 4.43 10^6/uL (4.00-5.40); WHITE BLOOD COUNT 5.3 10^3/uL (4.0-10.0)
[2023-03-25 12:38] LABS: HEMOGLOBIN A1c 5.9 % (4.0-6.0)
[2023-03-25 12:54] LABS: ALBUMIN 4.1 G/DL (3.2-5.2); ALKALINE PHOSPHATASE 121 U/L (46-116); ALT/SGPT 23 U/L (7.0-40); AST/SGOT 15 U/L (<34); BILIRUBIN,TOTAL 0.7 MG/DL (0.3-1.2); BLOOD UREA NITROGEN 15 MG/DL (9-23); CALCIUM LEVEL 9.5 MG/DL (8.5-10.1); CARBON DIOXIDE LEVEL 29 MMOL/L (20-31); CHLORIDE LEVEL 102 MMOL/L (98-107); CHOLESTEROL LEVEL 137 MG/DL (<200); CHOLESTEROL RISK RATIO 2.58 (<5); CREATININE FOR GFR 0.63 MG/DL (0.55-1.30); FERRITIN 61.7 NG/ML (7.3-270.7); GLOMERULAR FILTRATION RATE > 60.0 (>51); GLUCOSE, FASTING 107 MG/DL (60-100); HDL CHOLESTEROL 52.9 MG/DL (>40); LDL CHOLESTEROL 62.7 MG/DL (<100); NON-HDL-C 84.1 MG/DL; POTASSIUM SERUM 3.9 MMOL/L (3.5-5.1); SODIUM LEVEL 138 MMOL/L (136-145); THYROID STIMULATING HORMONE 2.124 uIU/ML (0.55-4.78); TOTAL 25(OH) VITAMIN D 36.5 NG/ML (20.0-100.0); TOTAL PROTEIN 6.8 G/DL (5.7-8.2); TRIGLYCERIDES LEVEL 107 MG/DL (<150)
== END ==
LOC: M PLALAB 08:16
PROVIDERS: ATTEND Nurse Practitioner Adult Health
DX: E11.9 Type 2 diabetes mellitus without complications (principal); E61.1 Iron deficiency; Z13.220 Encounter for screening for lipoid disorders; E55.9 Vitamin D deficiency, unspecified; Z13.29 Encounter for screening for other suspected endocrine disorder

== ENCOUNTER → 2023-10-03 | Outpatient (CLI) | payer BC ==
[2023-10-03 11:00] LABS: ALBUMIN 3.8 G/DL (3.2-5.2); ALKALINE PHOSPHATASE 123 U/L (46-116); ALT/SGPT 21 U/L (7.0-40); AST/SGOT 15 U/L (<34); BILIRUBIN,TOTAL 0.9 MG/DL (0.3-1.2); BLOOD UREA NITROGEN 12 MG/DL (9-23); CALCIUM LEVEL 9.5 MG/DL (8.5-10.1); CARBON DIOXIDE LEVEL 31 MMOL/L (20-31); CHLORIDE LEVEL 106 MMOL/L (98-107); CHOLESTEROL LEVEL 139 MG/DL (<200); CHOLESTEROL RISK RATIO 3.13 (<5); CREATININE FOR GFR 0.69 MG/DL (0.55-1.30); GLOMERULAR FILTRATION RATE > 60.0 (>51); GLUCOSE, FASTING 111 MG/DL (60-100); HDL CHOLESTEROL 44.3 MG/DL (>40); LDL CHOLESTEROL 72.9 MG/DL (<100); NON-HDL-C 94.7 MG/DL; POTASSIUM SERUM 3.9 MMOL/L (3.5-5.1); SODIUM LEVEL 140 MMOL/L (136-145); TOTAL PROTEIN 6.9 G/DL (5.7-8.2); TRIGLYCERIDES LEVEL 109 MG/DL (<150)
[2023-10-03 11:02] LABS: TOTAL 25(OH) VITAMIN D 35.8 NG/ML (20.0-100.0)
[2023-10-03 11:03] LABS: THYROID STIMULATING HORMONE 1.974 uIU/ML (0.55-4.78)
[2023-10-03 11:14] LABS: HEMOGLOBIN A1c 6.1 % (4.0-6.0)
== END ==
LOC: M PLALAB 08:39
PROVIDERS: ATTEND Nurse Practitioner Adult Health
DX: E55.9 Vitamin D deficiency, unspecified (principal); E11.9 Type 2 diabetes mellitus without complications; Z13.220 Encounter for screening for lipoid disorders; Z13.29 Encounter for screening for other suspected endocrine disorder

== ENCOUNTER → 2023-10-09 | Outpatient (CLI) | payer BC | LOC: M PLALAB 08:07 → M PLAIMG 08:07 | PROVIDERS: ATTEND Nurse Practitioner Adult Health | DX: M79.644 Pain in right finger(s) (principal) ==

== ENCOUNTER → 2024-04-02 | Outpatient (CLI) | payer BC ==
[2024-04-02 15:18] LABS: HEMATOCRIT 39.3 % (36.0-47.0); HEMOGLOBIN 13.1 g/dl (12.0-15.5); MEAN CORPUSCULAR HEMOGLOBIN 29.4 pg (27.0-33.0); MEAN CORPUSCULAR HGB CONC 33.3 g/dl (32.0-36.5); MEAN CORPUSCULAR VOLUME 88.3 fl (80.0-96.0); PLATELET COUNT, AUTOMATED 284 10^3/uL (150-450); RED BLOOD COUNT 4.45 10^6/uL (4.00-5.40); WHITE BLOOD COUNT 5.4 10^3/uL (4.0-10.0)
[2024-04-02 15:23] LABS: LIPASE 49 U/L (12-53)
[2024-04-02 15:25] LABS: ALBUMIN 3.8 G/DL (3.2-5.2); ALKALINE PHOSPHATASE 110 U/L (35-104); ALT/SGPT 22 U/L (7.0-40); AMYLASE 54 U/L (30-118); AST/SGOT 18 U/L (<34); BILIRUBIN,TOTAL 0.7 MG/DL (0.3-1.2); BLOOD UREA NITROGEN 10 MG/DL (9-23); CALCIUM LEVEL 9.3 MG/DL (8.5-10.1); CARBON DIOXIDE LEVEL 29 MMOL/L (20-31); CHLORIDE LEVEL 105 MMOL/L (98-107); CHOLESTEROL LEVEL 127 MG/DL (<200); CHOLESTEROL RISK RATIO 2.44 (<5); CREATININE FOR GFR 0.66 MG/DL (0.55-1.30); GLOMERULAR FILTRATION RATE > 60.0 (>51); GLUCOSE, FASTING 123 MG/DL (60-100); HDL CHOLESTEROL 51.9 MG/DL (>40); HEMOGLOBIN A1c 6.1 % (4.0-6.0); LDL CHOLESTEROL 60.7 MG/DL (<100); NON-HDL-C 75.1 MG/DL; POTASSIUM SERUM 4.3 MMOL/L (3.5-5.1); SODIUM LEVEL 143 MMOL/L (136-145); TOTAL PROTEIN 6.8 G/DL (5.7-8.2); TRIGLYCERIDES LEVEL 72 MG/DL (<150)
[2024-04-02 15:27] LABS: FERRITIN 66.2 NG/ML (7.3-270.7)
== END ==
LOC: M PLALAB 08:13
PROVIDERS: ATTEND Nurse Practitioner Adult Health
DX: E61.1 Iron deficiency (principal); E55.9 Vitamin D deficiency, unspecified; E78.2 Mixed hyperlipidemia; E11.9 Type 2 diabetes mellitus without complications

== ENCOUNTER → 2024-08-19 | Outpatient (CLI) | payer BC | LOC: M WHC 10:16 | PROVIDERS: ATTEND Advanced Practice Midwife | DX: Z12.31 Encounter for screening mammogram for malignant neoplasm of breast (principal); R92.313 Mammographic fatty tissue density, bilateral breasts ==

== ENCOUNTER → 2024-10-04 | Outpatient (CLI) | payer BC ==
[2024-10-04 10:36] LABS: ESTIMATED AVERAGE GLUCOSE 128.0 MG/DL (60-110)
[2024-10-04 10:55] LABS: TOTAL 25(OH) VITAMIN D 41.8 NG/ML (20.0-100.0)
[2024-10-04 10:59] LABS: ALT/SGPT 21 U/L (7.0-40); AST/SGOT 21 U/L (<34); CALCIUM LEVEL 9.5 MG/DL (8.5-10.1); CARBON DIOXIDE LEVEL 30 MMOL/L (20-31); CHLORIDE LEVEL 103 MMOL/L (98-107); CHOLESTEROL LEVEL 141 MG/DL (<200); CHOLESTEROL RISK RATIO 2.68 (<5); CREATININE FOR GFR 0.67 MG/DL (0.55-1.30); GLOMERULAR FILTRATION RATE > 90.0 (>51); LDL CHOLESTEROL 72.8 MG/DL (<100); NON-HDL-C 88.4 MG/DL; POTASSIUM SERUM 4.4 MMOL/L (3.5-5.1); SODIUM LEVEL 142 MMOL/L (136-145); TRIGLYCERIDES LEVEL 78 MG/DL (<150)
== END ==
LOC: M PLALAB 08:20
PROVIDERS: ATTEND Nurse Practitioner Adult Health
DX: E11.9 Type 2 diabetes mellitus without complications (principal); E78.2 Mixed hyperlipidemia; E55.9 Vitamin D deficiency, unspecified